=== PATIENT | female | born 1975 | race Caucasian/White ===

== ENCOUNTER 2020-11-08 18:22 | Emergency (ER) | payer BC ==
[~2020-11-08] VITALS: Ht 172.7 cm; Wt 115.5 kg
[2020-11-08 20:15] LABS: HEMATOCRIT 43.1 % (37.0-47.0); HEMOGLOBIN 14.3 g/dl (12.0-16.0); IMMATURE GRANULOCYTES 0.2 % (0.0-5.0); MEAN CELL VOLUME 92.3 fL CALC (80.0-100.0); MEAN CORPUSCULAR HGB 30.6 pG CALC (26.0-32.0); MEAN CORPUSCULAR HGB CONC 33.2 g/dL CAL (32.0-36.0); NEUT# 6.88 thou/uL (2.00-7.15); RED BLOOD COUNT 4.67 mill/uL (4.20-5.60); RED CELL DISTRI WIDTH 13.7 % (11.5-15.5)
[2020-11-08 20:22] LABS: ALBUMIN 3.7 g/dL (3.2-5.0); ALKALINE PHOSPHATASE 82 u/l (38-126); ANION GAP 11 (6-22 (CALC)); BILIRUBIN, TOTAL 0.3 mg/dL (0.0-1.4); BUN 29 mg/dL (7-17); BUN/CREATININE RATIO 21 (12-20 (CALC)); CARBON DIOXIDE 34 mmol/l (22-30); CHLORIDE 90 mmol/l (95-108); CREATININE 1.4 mg/dL (0.5-1.0); GFR 40 ML/MIN (>=60 (CALC)); GFR FOR AFR.AMER. 49 ML/MIN (>=60 (CALC)); SGOT/AST 65 u/l (14-36); SODIUM 132 mmol/l (137-146); TOTAL PROTEIN 6.8 g/dL (6.3-8.2)
[2020-11-08 20:34] LABS: MYOGLOBIN 28 ng/mL (0 - 62)
[2020-11-08] MEDS ORDERED: POT CHLORIDE10 ME5 PO (21:21)
[2020-11-08] MEDS ORDERED: FUROSEMIDE20 MG PO (21:23)
[2020-11-08] MEDS ORDERED: METOLAZONE5 MG PO (21:24)
[2020-11-08] MEDS ORDERED: KETOROLAC10 MG PO (21:25)
[2020-11-08] MEDS ORDERED: CITALOPRAM40 M1 PO (21:25)
[2020-11-08] MEDS ORDERED: MAXZIDE-2537.5 MG/TA PO (21:26)
[2020-11-08] MEDS ORDERED: ATORVASTATIN CA20 MG PO (21:26)
[2020-11-08] MEDS ORDERED: MONTELUKAST SOD10 MG PO (21:27)
[2020-11-08] MEDS ORDERED: TRAZODONE50 MG PO (21:28)
[2020-11-08 21:29] LABS: URINE BILIRUBIN - DIPSTICK NEGATIVE (NEGATIVE); URINE BLOOD DIPSTICK NEGATIVE (NEGATIVE); URINE COLOR YELLOW; URINE GLUCOSE - DIPSTICK >=1000 mg/dL (NEGATIVE); URINE KETONE NEGATIVE (NEGATIVE); URINE LEUK ESTERASE NEGATIVE (NEGATIVE); URINE PH 6.5 (4.5-8.0); URINE PROTEIN - DIPSTICK NEGATIVE (NEG-TRACE); URINE UROBILINOGEN - DIPSTICK 0.2 E.U./dL (0.2)
[2020-11-08] MEDS ORDERED: VITAMIN D350000 UNIT PO (21:29)
[2020-11-08] MEDS ORDERED: JARDIANCE25 MG PO (21:30)
[2020-11-08] MEDS ORDERED: ATENOLOL50 MG PO (21:30)
[2020-11-08 21:31] LABS: URINE NITRITE - DIPSTICK NEGATIVE (Negative)
[2020-11-08] MEDS ORDERED: ALBUTEROL SUL0.083 % IN (21:31)
[2020-11-08] MEDS ORDERED: TOUJEO MAX300 UNIT/M SC (21:31)
[2020-11-08 21:46] VITALS: BP 107/63
== END 2020-11-08 22:16 | disposition home or self-care (01) | DRG 178 ==
LOC: ED 18:22
PROVIDERS: Emergency Medicine; Family Medicine
DX: U07.1 COVID-19 (principal); D84.9 Immunodeficiency, unspecified; J45.909 Unspecified asthma, uncomplicated; E11.9 Type 2 diabetes mellitus without complications; M34.9 Systemic sclerosis, unspecified; D75.1 Secondary polycythemia; E87.6 Hypokalemia; Z79.84 Long term (current) use of oral hypoglycemic drugs

== ENCOUNTER 2021-04-13 08:00 | Observation (INO) | payer BC ==
[~2021-04-13] VITALS: Ht 172.7 cm; Wt 110.9 kg
[~2021-04-13 08:00] MED LIST: ALBUTEROL SUL0.083 % IN; ATENOLOL50 MG PO; ATORVASTATIN CA20 MG PO; CITALOPRAM40 M1 PO; FUROSEMIDE20 MG PO; JARDIANCE25 MG PO; KETOROLAC10 MG PO; MAXZIDE-2537.5 MG/TA PO; METOLAZONE5 MG PO; MONTELUKAST SOD10 MG PO; POT CHLORIDE10 ME5 PO; TOUJEO MAX300 UNIT/M SC; TRAZODONE50 MG PO; VITAMIN D350000 UNIT PO
[2021-04-13 08:56] LABS: HEMOGLOBIN 14.3 g/dl (12.0-16.0); IMMATURE GRANULOCYTES 0.1 % (0.0-5.0); MEAN CELL VOLUME 91.1 fL CALC (80.0-100.0); MEAN CORPUSCULAR HGB 29.6 pG CALC (26.0-32.0); MEAN CORPUSCULAR HGB CONC 32.5 g/dL CAL (32.0-36.0); NEUT# 7.75 thou/uL (2.00-7.15); RED BLOOD COUNT 4.83 mill/uL (4.20-5.60); RED CELL DISTRI WIDTH 13.4 % (11.5-15.5)
[2021-04-13 09:03] LABS: ALKALINE PHOSPHATASE 121 u/l (38-126); AMYLASE 72 u/l (30-110); ANION GAP 10 (6-22 (CALC)); BILIRUBIN, TOTAL 0.4 mg/dL (0.0-1.4); BUN 19 mg/dL (7-17); BUN/CREATININE RATIO 23 (12-20 (CALC)); CARBON DIOXIDE 29 mmol/l (22-30); CHLORIDE 99 mmol/l (95-108); CREATININE 0.8 mg/dL (0.5-1.0); GFR > 60 ML/MIN (>=60 (CALC)); GFR FOR AFR.AMER. > 60 ML/MIN (>=60 (CALC)); LIPASE 92 u/l (23-300); SGOT/AST 32 u/l (14-36); SODIUM 134 mmol/l (137-146); TOTAL PROTEIN 7.2 g/dL (6.3-8.2)
[2021-04-13 18:12] VITALS: BP 152/82
[2021-04-13 19:00] VITALS: BP 137/69
[2021-04-14] VITALS: BP 118/58
[2021-04-14 04:00] VITALS: BP 100/54
[2021-04-14 06:40] LABS: HEMATOCRIT 43.2 % (37.0-47.0); HEMOGLOBIN 13.7 g/dl (12.0-16.0); MEAN CELL VOLUME 92.5 fL CALC (80.0-100.0); MEAN CORPUSCULAR HGB 29.3 pG CALC (26.0-32.0); MEAN CORPUSCULAR HGB CONC 31.7 g/dL CAL (32.0-36.0); RED BLOOD COUNT 4.67 mill/uL (4.20-5.60); RED CELL DISTRI WIDTH 13.7 % (11.5-15.5)
[2021-04-14 06:50] LABS: ANION GAP 11 (6-22 (CALC)); BUN 16 mg/dL (7-17); BUN/CREATININE RATIO 26 (12-20 (CALC)); CALCULATED LDLCHOLESTEROL 119 mg/dL (62-129 (CALC)); CARBON DIOXIDE 26 mmol/l (22-30); CHLORIDE 105 mmol/l (95-108); CHOLESTEROL HDL RATIO 3.7 (<4.4 (CALC)); CREATININE 0.6 mg/dL (0.5-1.0); GFR > 60 ML/MIN (>=60 (CALC)); GFR FOR AFR.AMER. > 60 ML/MIN (>=60 (CALC)); HDL CHOLESTEROL 57 mg/dL (>=40); MAGNESIUM 1.5 mg/dL (1.6-2.3); POTASSIUM 4.1 mmol/l (3.5-5.1); SODIUM 138 mmol/l (137-146); TOTAL CHOLESTEROL 213 mg/dl (0-199); TOTAL TRIGLYCERIDES 183 mg/dl (30-149); VLDL CHOLESTROL 37 mg/dl (1-41 (CALC))
[2021-04-14 07:49] VITALS: BP 113/60
[2021-04-14 12:17] VITALS: BP 90/54
== END 2021-04-14 13:15 | disposition home or self-care (01) | DRG 313 ==
LOC: ED 08:00 → ED-I 11:00 → ED 11:24 → MS2 11:25
PROVIDERS: ADMIT Hospitalist; ATTEND Hospitalist
DX: R07.9 Chest pain, unspecified (principal); I10 Essential (primary) hypertension; E11.65 Type 2 diabetes mellitus with hyperglycemia; D45 Polycythemia vera; Z79.4 Long term (current) use of insulin; Z20.822 Contact with and (suspected) exposure to COVID-19
CPT/HCPCS: G0378; J1650; Q9967

== ENCOUNTER 2023-12-07 20:34 | Observation (INO) | payer BC ==
[2023-12-07] VITALS (13 sets, daily range): BP systolic 101–179; BP diastolic 63–108
[~2023-12-07] VITALS: Ht 172.7 cm; Wt 122.2 kg
[2023-12-07] MEDS ORDERED: ASPIRIN 81 MG/TAB PO ONE (20:55)
[2023-12-07] MEDS ORDERED: NITROGLYCERIN 2% OINT UD 1 GM/PAK TD ONE (20:55)
[2023-12-07] MEDS ORDERED: LABETALOL HCL 20 MG/ 4 ML CARTRG IV ONE (21:00)
[2023-12-07 21:14] LABS: BASO% 0.5 % (0-3); EOS% 0.3 % (0-8); IMMATURE GRANULOCYTES 0.2 % (0.0-5.0); LYMPH% 8.4 % (15-41); MEAN CORPUSCULAR HGB 20.1 pG CALC (26.0-32.0); MONO% 10.5 % (2-13); NEUT# 14.11 thou/uL (2.00-7.15); NEUT% 80.1 % (42-76); RED BLOOD COUNT 4.82 mill/uL (4.20-5.60); RED CELL DISTRI WIDTH 17.7 % (11.5-15.5)
[2023-12-07 21:15] LABS: HEMATOCRIT 34.6 % (37.0-47.0); HEMOGLOBIN 9.7 g/dl (12.0-16.0); MEAN CELL VOLUME 71.8 fL CALC (80.0-100.0)
[2023-12-07 21:25] LABS: ALBUMIN 3.9 g/dL (3.2-5.0); CREATININE 0.7 mg/dL (0.5-1.0); POTASSIUM 3.8 mmol/l (3.5-5.1)
[2023-12-07 21:27] LABS: BILIRUBIN, TOTAL 0.7 mg/dL (0.02-1.3)
[2023-12-07 21:33] LABS: INTERNATIONAL NORMALIZED RATIO 1.1 RATIO (0.7-1.3); PROTHROMBIN TIME 10.5 SECONDS (9.0-12.5)
[2023-12-07] MEDS ORDERED: ACETAMINOPHEN 500 MG TAB PO ONE (21:45)
[2023-12-07] MEDS ORDERED: KETOROLAC TROMETHAMINE 30 MG/ML SDV IV ONE (21:45)
[2023-12-07 21:55] LABS: TSH, 3RD GENERATION 0.93 uIU/mL (0.47 - 4.68)
[2023-12-07 22:14] LABS: URINE BILIRUBIN - DIPSTICK Negative (NEGATIVE); URINE BLOOD DIPSTICK Moderate (NEGATIVE); URINE GLUCOSE - DIPSTICK 100 mg/dL (NEGATIVE); URINE KETONE Negative (NEGATIVE); URINE NITRITE - DIPSTICK Negative (Negative); URINE PROTEIN - DIPSTICK 100 mg/dL (NEG-TRACE)
[2023-12-07 22:18] LABS: URINE BACTERIA MANY hpf; URINE COLOR Yellow; URINE LEUK ESTERASE Small (NEGATIVE); URINE SQUAMOUS EPITHELIAL CELL FEW EPI/hpf (0-FEW); URINE WBC 50-100 WBC/hpf (0-5)
[2023-12-07] MEDS ORDERED: cefTRIAXone SODIUM 2 GM in SODIUM CHLORIDE 0.9% 100 ML IV ONE (22:25)
[2023-12-07] MEDS ORDERED: ACETAMINOPHEN 325 MG/TAB PO PRN (22:30)
[2023-12-07] MEDS ORDERED: Polyethylene Glycol 3350 17 GM/PKT PO PRN (22:30)
[2023-12-07] MEDS ORDERED: ONDANSETRON 4 MG/TAB ODT PO PRN (22:30)
[2023-12-07] MEDS ORDERED: FAMOTIDINE 10MG/ML 2ML SDV IV PRN (22:30)
[2023-12-07] MEDS ORDERED: IBUPROFEN 800 MG/TAB PO PRN (22:30)
[2023-12-07] MEDS ORDERED: ALUM & MAG HYDROX-SIMETHICONE 30 ML PO PRN (22:30)
[2023-12-07] MEDS ORDERED: ENOXAPARIN SODIUM 40 MG/0.4 ML SYR SC SCH (22:30)
[2023-12-07] MEDS ORDERED: ONDANSETRON HCl 4 MG/2 ML SDV IV PRN (22:30)
[2023-12-07] MEDS ORDERED: LISINOPRIL 10 MG/TAB PO SCH (22:31)
[2023-12-07] MEDS ORDERED: DEXTROSE 250 ML IV PRN (22:35)
[2023-12-08] VITALS: BP 122/76
[2023-12-08 00:37] VITALS: BP 129/84
[2023-12-08 02:50] VITALS: BP 136/73
[2023-12-08] MEDS ORDERED: INSULIN LISPRO 100 UNITS/ML ML SC SCH (07:00)
[2023-12-08 07:02] VITALS: BP 136/73
[2023-12-08 07:13] LABS: CHOLESTEROL HDL RATIO 2.9 (<4.4 (CALC))
[2023-12-08] MEDS ORDERED: ACETAMINOPHEN 325 MG/TAB PO PRN (08:30)
[2023-12-08] MEDS ORDERED: MAGNESIUM HYDROXIDE 30 ML UDC PO PRN (08:30)
[2023-12-08] MEDS ORDERED: SODIUM CHLORIDE 0.9% 1,000 ML IV PRN (08:30)
[2023-12-08] MEDS ORDERED: ASPIRIN 81 MG/TAB PO SCH (09:00)
[2023-12-08 10:38] VITALS: BP 146/77
[2023-12-08] MEDS ORDERED: GABAPENTIN 300 MG/CAP PO SCH (11:00)
[2023-12-08] MEDS ORDERED: IRON DEXTRAN 100 MG/2 ML AMP IV SCH (11:30)
[2023-12-08] MEDS ORDERED: ATORVASTATIN CA20 MG PO (12:10)
[2023-12-08] MEDS ORDERED: LISINOPRIL20 M1 PO (12:10)
[2023-12-08] MEDS ORDERED: GABAPENTIN300 M2 PO (12:11)
[2023-12-08] MEDS ORDERED: CITALOPRAM20 MG PO (12:11)
[2023-12-08] MEDS ORDERED: TRAZODONE50 MG PO (12:11)
[2023-12-08] MEDS ORDERED: FUROSEMIDE20 MG PO (12:11)
[2023-12-08] MEDS ORDERED: KLOR-CON M2020 MEQ PO (12:12)
[2023-12-08] MEDS ORDERED: MONTELUKAST SOD10 MG PO (12:12)
[2023-12-08] MEDS ORDERED: TOUJEO MAX300 UNIT/M SC (12:12)
[2023-12-08] MEDS ORDERED: KEFLEX500 MG PO (12:13)
[2023-12-08] MEDS ORDERED: FLUTICASONE PROPIONATE (Nasal) 50MCG/SPRAY INH SCH (15:30)
[2023-12-08 16:07] VITALS: BP 137/79
[2023-12-08] MEDS ORDERED: ENOXAPARIN SODIUM 40 MG/0.4 ML SYR SC SCH (21:00)
[2023-12-09] MEDS ORDERED: MACROBID100 M1 PO (11:14)
== END 2023-12-08 18:03 | disposition home or self-care (01) | DRG 313 ==
LOC: ED 20:34 → ED-I 22:02 → ED 22:32 → MS2 22:33
PROVIDERS: Family Medicine; ADMIT Internal Medicine; ATTEND Internal Medicine
DX: R07.9 Chest pain, unspecified (principal); N39.0 Urinary tract infection, site not specified; I10 Essential (primary) hypertension; E11.65 Type 2 diabetes mellitus with hyperglycemia; D64.9 Anemia, unspecified; N92.0 Excessive and frequent menstruation with regular cycle; D45 Polycythemia vera; T46.5X6A Underdosing of other antihypertensive drugs, initial encounter; T38.3X6A Underdosing of insulin and oral hypoglycemic [antidiabetic] drugs, initial encounter; Z91.120 Patient's intentional underdosing of medication regimen due to financial hardship; Z20.822 Contact with and (suspected) exposure to COVID-19
CPT/HCPCS: G0378; J1650